=== PATIENT | male | born 1940 | race Caucasian/White ===

== ENCOUNTER 2025-04-09 07:07 | Day surgery (SDC) | payer OTHER, SELFPAY ==
[2025-04-04 07:55] VITALS: BMI 22.5
[2025-04-09] VITALS (8 sets, daily range): BP systolic 152–179; BP diastolic 75–92; PULSE 79–86; RESP 13–27; TEMP 36.3; O2SAT 97–100; BMI 22.5
--- NOTE | 2025-04-09 07:45 | PM.HP.IH.1 ---
History of Present Illness History of Present Illness Date Patient Seen: 04/09/25 Time Patient Seen: 07:45 Chief complaint: Robotic L inguinal hernia repair w/mesh Narrative: Pawan is an 84-year-old man with a left inguinal hernia and an umbilical hernia. See the [facility] office note for details. [facility] Social History (Updated 02/11/25 @ 14:16 by Pj Arreola MA) marital status: household members: spouse Smoking Status: Former smoker Meds Home Medications and Allergies Allergies Allergy/AdvReac Type Severity Reaction Status Date / Time No Known Drug Allergies Allergy Unverified 02/11/25 14:20 Exam Const General: No acute distress Resp Effort & Inspection: normal respiratory effort Assessment & Plan Assessment and plan (1) Umbilical hernia: Qualifiers: Obstruction and gangrene presence: without obstruction or gangrene Qualified Code(s): K42.9 - Umbilical hernia without obstruction or gangrene Status: Acute (2) Left inguinal hernia: Status: Acute Plan Robotic left inguinal hernia repair and umbilical hernia repair with mesh Time-Based Coding :: [TOTAL MINUTES] spent with patient and on the chart (including review of chart, obtaining history, exam, reviewing outside data, placing orders, documenting exam and treatment plan, and counseling patient) on [DATE]. [employer] Document charge(s): No
[2025-04-09] MEDS: ACETAMINOPHEN 325 MG TABLET 975 MG PO (08:04)
[2025-04-09] MEDS: LACTATED RINGERS 1,000 ML 42 ML IV ×2 (08:04→11:05)
[2025-04-09] MEDS: CEFAZOLIN 2 GM/100 ML PREMIX 100 ML IV (08:52)
--- NOTE | 2025-04-09 09:06 | SUR.OPER ---
Supine on padded OR bed, pink pad used, head on pillow, arms padded and tucked at sides, purple strap across shoulders, legs uncrossed, safety belt at thigh, tape over blanket over lower legs, table positioned over pt face, PA assisted with positioning
[2025-04-09] MEDS: BUPIVACAINE 0.5% (PF) 30 ML VIAL INJ (09:22)
--- NOTE | 2025-04-09 11:07 | P.OP_ITS ---
Operative Date/Time/Diagnoses Date of procedure: 04/09/25 Time of procedure: 11:07 Pre-op diagnosis: Umbilical hernia and left inguinal hernia Post-op diagnosis: other (Umbilical hernia and left direct inguinal hernia) Procedure & Clinicians Procedure: Robotic left inguinal hernia repair with mesh Open umbilical hernia repair with mesh Same procedure(s) as scheduled: Yes Surgeon: Michael Bro Trapper Bird: Fady Mukherjee Click Yes if Unassisted: Yes Anesthesia Type: General Operative Notes Findings: Large direct left inguinal hernia Small umbilical hernia Applied: none Estimated Blood Loss (mL): 9 Procedure in detail: The patient was given preoperative antibiotics. The patient was brought to the operating room, placed on the table in the supine position with the arms tucked and general anesthesia was induced. The abdomen was prepped and draped in the usual fashion. A time-out was performed. A 1 cm transverse incision was created about 4 cm superior to the umbilicus and dissection was carried down to the fascia. The fascia was grasped with a Dee clamp to elevate the abdominal wall. The fascia was scored transversely with cautery. A Peon clamp was used to bowers the peritoneum. The 12 mm robotic port was placed and the abdomen was insufflated to 15 mmHg. The camera was inserted, there was no evidence of any injury from the entry. There appeared to be an old mesh plug in the right inguinal area with no adhesions and no evidence of recurrent hernia. There appeared to be a rather large direct left inguinal defect. 8 mm ports were placed under direct vision in the mid left and mid right abdomen. The patient was positioned in Trendelenburg. The robot was docked. We created left marylu toneal flap. The peritoneum was dissected off the left cord structures and out of the direct defect and the Henry's ligament was exposed. There appeared to be a very small femoral defect containing some fat which was likely clinically insignificant. An extra-large left Bard mesh was brought in and placed over the defect with the medial edge overlapping the pubic symphysis. We then closed the peritoneal flap with a running 3-0 barbed suture. We took one last look around the abdomen and saw no other abnormalities. The suture was removed and accounted for. The robot was undocked. The 8 mm ports were removed under direct vision. The abdomen was desufflated. The 12 mm port was removed. Additional local was injected into the fascia and the fascial incision was closed with 2 interrupted 0 Vicryl sutures. Next, a 4 cm curvilinear incision was created inferior to the umbilicus and dissection was carried down to the hernia sac which was attached to the umbilical skin. The sac was dissected free from the umbilical stalk and dropped back into the abdomen. The fascial defect was probably 1 cm or even less. Some local was injected into the fascia and then the fascia was closed with 2 interrupted 0 Ethibond sutures. We then cleared the subcutaneous adipose tissue off the anterior sheath circumferentially for 2 cm around the hernia repair. We then trimmed a piece of polypropylene mesh to fit over the repair and glued in place with Tisseel. We then closed the incision in layers using multiple interrupted 3-0 Vicryl subcutaneous and dermal sutures followed by a running 4-0 Monocryl subcuticular stitch. The skin incisions were closed with 4 Monocryl, Steri-Strips and Band-Aids. Fady GARDNER provided assistance with exposure, retraction and closure of incisions. Complications: none Post-operative Condition: stable Disposition: PACU
[2025-04-09] MEDS: HYDROMORPHONE 1 MG INJ IV ×2 (11:31→11:38)
[2025-04-09] MEDS: OXYCODONE IR 5 MG TABLET PO (11:33)
[2025-04-09] MEDS: KETOROLAC 30 MG/ML VIAL 15 MG IV (11:41)
== END 2025-04-09 14:25 | disposition home or self-care (01) ==
PROVIDERS: PCP Registered Nurse; Referring Provider Surgery; Visit Provider Surgery
PROC: 0YQ64ZZ Repair Left Inguinal Region, Percutaneous Endoscopic Approach (ICD-10-PCS; CPT 49650; principal; 2025-04-09 08:45)
DX: K40.90 Unilateral inguinal hernia, without obstruction or gangrene, not specified as recurrent (principal); K42.9 Umbilical hernia without obstruction or gangrene; Z87.891 Personal history of nicotine dependence
CPT/HCPCS: 49650; 49591; S2900; C1781; C9250; J0690; J1100; J1171; J1885; J2405; J2704; J3010; J3490